=== PATIENT | female | born 1965 | race Caucasian/White ===

== ENCOUNTER 2016-11-12 02:25 | Emergency (ER) | payer OTHER ==
--- NOTE | 2016-11-12 02:38 | ED GI/GU/ABDOMINAL COMPLAINT ---
History of Present Illness General Chief Complaint: Abdominal Pain/Flank Pain Stated Complaint: RIGHT SIDE LOWER ABD PAIN Source: patient Exam Limitations: no limitations Vital Signs & Intake/Output Vital Signs & Intake/Output Vital Signs Date Time Temp Pulse Resp B/P B/P Pulse O2 O2 Flow FiO2 Mean Ox Delivery Rate 11/12 0426 97.8 87 20 115/73 100 Room Air 11/12 0311 98.2 72 20 124/75 98 Allergies Coded Allergies: No Known Allergies (11/12/16) Reconcile Medications Ciprofloxacin HCl (Cipro) 500 MG TABLET 1 TAB PO BID uti Fluconazole (Diflucan) 150 MG TABLET 1 TAB PO ONCE PRN YEAST INFECTION REPEAT IN 1 WEEK Interferon Beta-1a/Albumin (Rebif 44 Mcg/0.5 Ml Syringe) 44 MCG/0.5 ML SYRINGE 1 % SC 3XW MS (Reported) Modafinil 200 MG TABLET 1 TAB PO DAILY NARCOLEPSY (Reported) Phenazopyridine HCl (Pyridium) 100 MG TABLET 1-2 TAB PO TID painful urination Triage Nurses Notes Reviewed? yes ? n Is pt currently ? No Onset: Gradual Duration: day(s): Timing: recent history Quality/Severity: burning Location: right lower quadrant, suprapubic Radiation: no radiation Activities at Onset: none Prior Abdominal Problems: similar symptoms Modifying Factors: Worsens With: palpation, urinating. Associated Symptoms: abdominal pain, urinary frequency HPI: 51-year-old woman in prior good health, history of multiple sclerosis and reflux , presents with suprapubic discomfort, pressure, increased urination as well as right lower quadrant pain. She states that the dysuria began yesterday. She took cranberry juice without improvement. And then, this evening she developed right lower quadrant discomfort. She noted mild chills yesterday. She has no fever diarrhea chest pain shortness of breath. Past History Travel History Traveled to [place] past 21 day No Medical History Any Pertinent Medical History? see below for history Neurological: multiple sclerosis Gastrointestinal: GERD Surgical History Surgical History: none Family History Hx Contributory? No Review of Systems Review of Systems Constitutional: Reports: no symptoms. EENTM: Reports: no symptoms. Respiratory: Reports: no symptoms. Cardiovascular: Reports: no symptoms. GI: Reports: no symptoms. Genitourinary: Reports: no symptoms. Musculoskeletal: Reports: no symptoms. Skin: Reports: no symptoms. Neurological/Psychological: Reports: no symptoms. Hematologic/Endocrine: Reports: no symptoms. Immunologic/Allergic: Reports: no symptoms. All Other Systems: Reviewed and Negative Physical Exam Physical Exam General Appearance: well developed/nourished, mild distress Head: atraumatic, normal appearance Eyes: Bilateral: normal appearance. Ears, Nose, Throat, Mouth: hearing grossly normal Neck: normal inspection, supple, full range of motion, normal alignment Respiratory: normal breath sounds, chest non-tender, no respiratory distress, quiet respiration, lungs clear Cardiovascular: regular rate/rhythm Gastrointestinal: normal bowel sounds, soft, mild right lower quadrant tenderness. No rebound or guarding Back: normal inspection Extremities: normal range of motion Neurologic/Psych: no motor/sensory deficits, awake, alert, oriented x 3 Skin: intact, normal color, warm/dry Core Measures ACS in differential dx? No Severe Sepsis Present: No Septic Shock Present: No Progress Differential Diagnosis: appendicitis, diverticulitis, gastritis, hepatitis, pancreatitis, UTI/pyelo Plan of Care: Orders Procedure Date/time Status Add-on Test (ER Only) 11/12 0440 Active URINALYSIS 11/12 0302 Complete CULTURE,URINE 11/12 0300 Active LIPASE 11/12 0238 Complete HEPATIC FUNCTION PANEL 11/12 0238 Complete CBC WITHOUT DIFFERENTIAL 11/12 0238 Complete BASIC METABOLIC PANEL 11/12 0238 Complete AMYLASE 11/12 0238 Complete Laboratory Tests 11/12/16 0315: Anion Gap 11, Estimated GFR > 60, BUN/Creatinine Ratio 21.7, Glucose 99, Calcium 9.2, Total Bilirubin 0.4, Direct Bilirubin 0.2, AST 22, ALT 28, Alkaline Phosphatase 63, Total Protein 6.9, Albumin 3.6, Amylase 69, Lipase 240, CBC w Diff NO MAN DIFF REQ, RBC 4.16 L, MCV 88.5, MCH 29.1, RDW 12.9, MPV 7.8, Gran % 87.9 H, Lymphocytes % 7.5 L, Monocytes % 3.8, Eosinophils % 0.7, Basophils % 0.1, Absolute Granulocytes 10.9 H, Absolute Lymphocytes 0.9 L, Absolute Monocytes 0.5, Absolute Eosinophils 0.1, Absolute Basophils 0, PUBS MCHC 33.0 11/12/16 0300: Urinalysis LIGHT H, Urine Color YEL, Urine Clarity CLDY H, Urine pH 6.0, Ur Specific [place] 1.010, Urine Protein TRACE H, Urine Ketones NEG, Urine Nitrite NEG, Urine Bilirubin NEG, Urine Urobilinogen 0.2, Ur Leukocyte Esterase LARGE H , Ur Microscopic SEDIMENT EXAMINED, Urine RBC 10-15 H, Urine WBC 50-75 H, Ur Epithelial Cells FEW, Urine Bacteria FEW H, Urine Mucus FEW, Urine Hemoglobin LARGE H, Urine Glucose NEG Microbiology 11/12 0300 URINE ROUT: Urine Culture - RECD Diagnostic Imaging: Viewed by Me: CT Scan. Discussed w/RAD: CT Scan. Radiology Impression: abd/pelvis... thickened bladder c/w cystitis... full report below. Initial ED EKG: none Comments: PATIENT: VANE ZAMARRIPA PRESENT AGE: 51 PATIENT ACCOUNT NO: [id number] : 63 LOCATION: ER ORDERING PHYSICIAN: MADALYN ALBA MD SERVICE DATE: 11/12/16 EXAM TYPE: CAT - CT ABD & PELVIS W/O IV CONTRAS EXAMINATION: CT ABDOMEN AND PELVIS WITHOUT CONTRAST CLINICAL INFORMATION: Right lower quadrant pain. Question appendicitis. COMPARISON: None TECHNIQUE: Multidetector volumetric imaging was performed from the superior aspect of the liver through the pubic symphysis. Sagittal and coronal reformatted images were obtained on the technologist's workstation. DLP: 362 mGy-cm FINDINGS: LUNG BASES: The visualized lung bases are unremarkable. LIVER, GALLBLADDER, AND BILIARY TREE: The liver is normal in size, shape, and attenuation. No focal hepatic lesion or biliary ductal dilatation is present. The gallbladder is unremarkable with no evidence of radiopaque gallstones, gallbladder wall thickening, or obvious pericholecystic inflammatory changes. PANCREAS: Multiple calcifications are seen within the pancreatic parenchyma suggestive of chronic pancreatitis. No acute inflammatory changes. The pancreatic parenchyma is otherwise homogenous. SPLEEN: Unremarkable. ADRENAL GLANDS: Unremarkable. KIDNEYS AND URETERS: The kidneys are normal in size, shape, and attenuation. No hydronephrosis, hydroureter, or calculi seen. No perinephric stranding. BLADDER: Partially distended with circumferential wall thickening. GASTROINTESTINAL TRACT: The stomach and small bowel are unremarkable. No dilated loops of bowel or evidence of obstruction. Normal appendix. No colonic wall thickening or inflammatory changes. No free air or free fluid. ABDOMINAL WALL: No significant hernia is appreciated. Multiple soft tissue calcifications are present. LYMPH NODES: Normal. VASCULAR: Unremarkable. PELVIC VISCERA: The uterus and adnexa are unremarkable. OSSEOUS STRUCTURES: No acute or suspicious osseous abnormality. Mild degenerative changes in the spine. IMPRESSION: Normal appendix. Partial distention of the bladder with circumferential wall thickening. This could simply be secondary to underdistention. Correlate for cystitis. No acute pancreatic findings. Calcifications of the parenchyma suggest chronic pancreatitis. DICTATED BY: KETAN PATHAK MD DATE/TIME DICTATED:11/12/16400 [employer]ORATION SPECIALIST:GRETA DATE/TIME TRANSCRIBED:11/12/16400 CONFIDENTIAL, DO NOT COPY WITHOUT APPROPRIATE AUTHORIZATION. <Electronically signed in Other Vendor System> SIGNED BY: KETAN PATHAK MD 11/12 Departure Departure Disposition: HOME OR SELF CARE Condition: Stable Clinical Impression Primary Impression: Abdominal pain Secondary Impressions: Urinary tract infection Referrals: Maureen BOWERS MD (PCP/Family) Departure Forms: Customer Survey General Discharge Information Prescriptions: Current Visit Scripts Ciprofloxacin HCl (Cipro) 1 TAB PO BID #14 TAB Phenazopyridine HCl (Pyridium) 1-2 TAB PO TID #12 TAB Ref 1 Fluconazole (Diflucan) 1 TAB PO ONCE PRN YEAST INFECTION #2 TAB REPEAT IN 1 WEEK Comments pt with benign ct scan.... labs and story consistent with uti. pt stable for discharge. discussed results at length.
[2016-11-12] MEDS ORDERED: REBIF 44 M44 MCG/0.5 SC (03:13)
[2016-11-12] MEDS ORDERED: MODAFINIL200 M1 PO (03:13)
[2016-11-12 03:53] LABS: ABSOLUTE BASOPHIL COUNT 0 /CUMM (0.0-0.2); ABSOLUTE EOSINOPHIL COUNT 0.1 /CUMM (0.0-0.7); ABSOLUTE GRANULOCYTE CT 10.9 /CUMM (1.4-6.5); ABSOLUTE LYMPH COUNT 0.9 /CUMM (1.2-3.4); ABSOLUTE MONOCYTE COUNT 0.5 /CUMM (0.10-0.60); BASOPHIL % 0.1 % (0.0-2.0); EOSINOPHIL % 0.7 % (0-5); HEMATOCRIT 36.8 % (37-47); MEAN CORPUSCULAR HGB 29.1 PG (27.0-31.0); MEAN CORPUSCULAR VOLUME 88.5 FL (81.0-99.0); MEAN PLATELET VOLUME 7.8 FL (7.4-10.4); PLATELET COUNT 416 /CUMM (130-400); RBC DISTRIBUTION WIDTH 12.9 % (11.5-14.5); RED BLOOD CELL CT 4.16 /CUMM (4.20-5.40); WHITE BLOOD CELL COUNT 12.4 /CUMM (4.8-10.8)
[2016-11-12 03:55] LABS: GRANULOCYTE % 87.9 % (42.2-75.2)
--- NOTE | 2016-11-12 04:08 | CT SCAN REPORT ---
EXAMINATION: CT ABDOMEN AND PELVIS WITHOUT CONTRAST CLINICAL INFORMATION: Right lower quadrant pain. Question appendicitis. COMPARISON: None TECHNIQUE: Multidetector volumetric imaging was performed from the superior aspect of the liver through the pubic symphysis. Sagittal and coronal reformatted images were obtained on the technologist's workstation. DLP: 362 mGy-cm FINDINGS: LUNG BASES: The visualized lung bases are unremarkable. LIVER, GALLBLADDER, AND BILIARY TREE: The liver is normal in size, shape, and attenuation. No focal hepatic lesion or biliary ductal dilatation is present. The gallbladder is unremarkable with no evidence of radiopaque gallstones, gallbladder wall thickening, or obvious pericholecystic inflammatory changes. PANCREAS: Multiple calcifications are seen within the pancreatic parenchyma suggestive of chronic pancreatitis. No acute inflammatory changes. The pancreatic parenchyma is otherwise homogenous. SPLEEN: Unremarkable. ADRENAL GLANDS: Unremarkable. KIDNEYS AND URETERS: The kidneys are normal in size, shape, and attenuation. No hydronephrosis, hydroureter, or calculi seen. No perinephric stranding. BLADDER: Partially distended with circumferential wall thickening. GASTROINTESTINAL TRACT: The stomach and small bowel are unremarkable. No dilated loops of bowel or evidence of obstruction. Normal appendix. No colonic wall thickening or inflammatory changes. No free air or free fluid. ABDOMINAL WALL: No significant hernia is appreciated. Multiple soft tissue calcifications are present. LYMPH NODES: Normal. VASCULAR: Unremarkable. PELVIC VISCERA: The uterus and adnexa are unremarkable. OSSEOUS STRUCTURES: No acute or suspicious osseous abnormality. Mild degenerative changes in the spine. IMPRESSION: Normal appendix. Partial distention of the bladder with circumferential wall thickening. This could simply be secondary to underdistention. Correlate for cystitis. No acute pancreatic findings. Calcifications of the parenchyma suggest chronic pancreatitis.
[2016-11-12] MEDS ORDERED: CIPRO500 M1 PO (04:24)
[2016-11-12] MEDS ORDERED: PYRIDIUM100 M1 PO (04:24)
[2016-11-12 04:26] VITALS: BP 115/73
[2016-11-12] MEDS ORDERED: DIFLUCAN150 M1 PO (04:36)
== END 2016-11-12 04:47 ==
LOC: ERH 02:25
PROVIDERS: Pediatrics
DX: N39.0 Urinary tract infection, site not specified (principal)
CPT/HCPCS: 74176; 81001; 87086